=== PATIENT | male | born 1985 | race African-American/Black ===

== ENCOUNTER 2019-02-18 00:49 | Emergency (ER) | payer MEDICAID, OTHER ==
[~2019-02-18] VITALS: Ht 177.8 cm; Wt 13.6 kg
--- NOTE | 2019-02-18 01:10 | NUR ---
ED Nurse Note: Pt arrived ambulatory, A/Ox4 with complaint of toothache rating of 7/10. Pt states pain has been going on for 2 weeks. Has also been experiencing a decrease in appetite. Addendum: 02/18/19 at 0113 by [email or web address] Pain located on left side of jaw. No swelling or redness noted.
[2019-02-18 01:12] VITALS: BP 144/86
--- NOTE | 2019-02-18 01:16 | Emergency Room Report ---
History of Present Illness General Chief Complaint: Toothache Source: Patient Present Illness HPI Is a 33-year-old male with no past medical history. He presents with chief complaint of dental pain. Been on and off for 2 weeks now. Getting worse. Worse with eating and drinking. No nausea no vomiting. No fever chills but no swelling. pain is 8 out of 10. Allergies: Coded Allergies: No Known Allergies (Unverified , 02/18/19) Patient History Past Medical History: see triage record, old chart reviewed Past Surgical History: none Pertinent Family History: none Social History: Denies: smoking Immunizations: other Reviewed Nursing Documentation: PMH: Agreed; PSxH: Agreed Nursing Documentation-PMH Past Medical History: No History, Except For Review of Systems Eye: Denies: eye pain, blurred vision ENT: Denies: ear pain, nose congestion, throat swelling Respiratory: Denies: cough, shortness of breath Cardiovascular: Denies: chest pain, palpitations Gastrointestinal: Denies: abdominal pain, diarrhea, nausea, vomiting Musculoskeletal: Denies: back pain, joint pain Skin: Denies: rash Neurological: Denies: headache, numbness Endocrine: Denies: increased thirst, increased urine Hematologic/Lymphatic: Denies: easy bruising All Other Systems: negative except mentioned in HPI Physical Exam Vital Signs Date Time Temp Pulse Resp B/P (MAP) Pulse Ox O2 Delivery O2 Flow Rate FiO2 02/18/19 00:58 97.9 60 17 144/86 95 Room Air vitals normal Sp02 EP Interpretation: reviewed, normal General Appearance: well appearing, no apparent distress, alert Head: normocephalic, atraumatic Eyes: bilateral eye PERRL, bilateral eye EOMI ENT: hearing grossly normal, normal pharynx, other - Poor dentition. He has tenderness to the left upper first molar. There is widespread dental decay. Neck: full range of motion, supple, no meningismus Respiratory: chest non-tender, lungs clear, normal breath sounds Cardiovascular #1: regular rate, rhythm, no murmur Gastrointestinal: normal bowel sounds, non tender, no mass, no organomegaly, no bruit, non-distended Musculoskeletal: back normal, gait/station normal, normal range of motion Psychiatric: mood/affect normal Skin: warm/dry Medical Decision Making Diagnostic Impression: Primary Impression: Toothache ER Course Patient with dental pain in probably infection. No evidence of any abscess. We 'll discharge home with dental follow-up. Return if worse. Last Vital Signs Date Time Temp Pulse Resp B/P (MAP) Pulse Ox O2 Delivery O2 Flow Rate FiO2 02/18/19 01:12 98.1 69 17 144/86 95 Room Air Referrals: NOT CHOSEN IPA/,REFERRING (PCP) Kelvin Ross MD Feb 18, 2019 01:16
[2019-02-18] MEDS ORDERED: IBUPROFEN600 MG ORAL (01:17)
[2019-02-18] MEDS ORDERED: AMOXICILLIN500 MG ORAL (01:17)
[2019-02-18 01:21] VITALS: BP 142/86
--- NOTE | 2019-02-18 01:21 | NUR ---
ED Nurse Note: pt cleared by MD. Saavedra, ambulatory with steady gait. Discharge paperwork and prescriptions provided. Pt verbalized understanding of all instructions. ID band removed.
== END 2019-02-18 01:21 | disposition home or self-care (01) ==
LOC: EMR 01:10
DX: K08.89 Other specified disorders of teeth and supporting structures (principal)
CPT/HCPCS: 99282